=== PATIENT | male | born 1970 | race Caucasian/White ===

== ENCOUNTER 2020-06-09 11:48 | Emergency (ER) | payer OTHER, SELFPAY ==
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
[2020-06-09 11:56] VITALS: BP 157/89; PULSE 100; RESP 20; TEMP 36.9; O2SAT 98
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
== END 2020-06-09 13:28 | disposition short-term general hospital (02) ==
LOC: EXPBETH 11:52
PROVIDERS: Emergency Provider Nurse Practitioner; PCP Internal Medicine
DX: S52.502A Unspecified fracture of the lower end of left radius, initial encounter for closed fracture (principal); X58.XXXA Exposure to other specified factors, initial encounter; E03.9 Hypothyroidism, unspecified; F17.200 Nicotine dependence, unspecified, uncomplicated
CPT/HCPCS: 29105; 73090; 99204; A4565; G0463